=== PATIENT | female | born 1940 | race Caucasian/White ===

== ENCOUNTER → 2018-11-01 | Day surgery (SDC) | payer MEDICARE ==
[2018-10-31 14:36] LABS: BASOPHILS % 0.4 % (0.0-1.0); EOSINOPHILS # (AUTO) 0.1 (0.0-0.4); EOSINOPHILS % 1.3 % (0.0-6.0); HEMATOCRIT 39.1 % (34.2-44.1); HEMOGLOBIN 13.4 g/dL (12.0-16.0); LYMPHOCYTES # (AUTO) 1.4 (1.0-3.2); MEAN CORPUSCULAR HEMOGLOBIN 30.7 pg (28-32); MEAN CORPUSCULAR HGB CONC 34.3 g/dL (31-35); MEAN CORPUSCULAR VOLUME 89.7 fL (81-99); MONOCYTES # (AUTO) 0.5 (0.2-0.8); MONOCYTES % 8.9 % (4.4-11.3); NEUTROPHILS # (AUTO) 3.4 (2.1-6.9); NEUTROPHILS % 62.8 % (38.7-80.0); PLATELET COUNT 183 x10e3/uL (140-360); RED BLOOD COUNT 4.36 x10e6/uL (3.6-5.1); RED CELL DISTRIBUTION WIDTH 12.2 % (11.7-14.4)
[2018-10-31 14:46] LABS: INR 2.34; PROTHROMBIN TIME 27.4 seconds (11.9-14.5)
[2018-10-31 14:47] LABS: PARTIAL THROMBOPLASTIN TIME 46.6 seconds (23.8-35.5)
[~2018-11-01] MED LIST: BUSPIRONE HCL5 MG PO; BUTALBITAL-ASA1 EACH; CLONIDINE HCL0.1 MG PO; DEXILANT60 MG; ELIQUIS; FENTANYL CITRATE/PF 100MCG/2 ML INJ ONE; GABAPENTIN100 MG; HYDROCHLOROTH12.5 M1; LASIX20 MG PO; LOMOTIL TABLET1 EACH; LOSARTAN POTASS25 MG; MIRALAX17 GM; NIFEDICAL; PHENERGAN25 MG/1 ML; POTASSIUM CL; PRAVASTATIN SOD10 MG; PROPOFOL IV EMULSION 10 MG/ML 50 ML VIAL ONE; TIZANIDINE HCL4 M1; TRAZODONE HCL100 MG; ULTRAM50 MG PO; VIRTUSSIN AC; VITAMIN D1000 UNI1 PO; fish oil PO; vitamin b-12 PO
--- OUTSIDE RECORDS SUMMARY | 2018-11-01 10:51 | XMS REPORT | Clinical Summary ---
Author Author [facility] Organization [facility] Address Unknown Phone Unavailable Care Team Providers Care Flasher Adjuster Name Role Phone Heriberto Norman MD PCP Allergies Comments Active Allergy Reactions Severity Noted Date BP SHOOTS UP Celecoxib Low 02/20/2017 Penicillins Rash Medium 02/20/2017 Medications End Date Status Medication Sig Dispensed Refills Start Date Active aspirin (ECOTRIN) 81 MG Take 81 mg by 0 enteric coated tablet mouth daily. Active loratadine (CLARITIN) 10 Take 10 mg by 0 mg tablet mouth daily. Active NIFEdipine XL (PROCARDIA Take 30 mg by 0 XL) 30 MG 24 hr tablet mouth daily. Active pravastatin (PRAVACHOL) Take 10 mg by 0 10 MG tablet mouth nightly. Active clonIDINE (CATAPRES-TTS) Place 1 patch 0 0.1 mg/24 hr on the skin once a week. Active furosemide (LASIX) 20 mg Take 20 mg by 0 tablet mouth 2 (two) times a day. Active traZODone (DESYREL) 100 Take 100 mg 0 MG tablet by mouth nightly. Active codeine-guaifenesin Take 5 mL by 0 (GUAIFENESIN AC) 10-100 mouth 3 mg/5 mL liquid (three) times a day as needed for cough. 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 Last Filed Vital Signs Not on file Plan of Treatment Health Maintenance Due Date Last Done Comments SHINGLES VACCINES (1 of 1988 2) PNEUMOCOCCAL 2003 POLYSACCHARIDE VACCINE AGE 65 AND OVER PNEUMOCOCCAL-13 2003 INFLUENZA VACCINE 06/13/2018 Results Not on fileafter 10/31/2017 Insurance Payer Benefit Subscriber ID Type Phone Address Plan / Group AARP AARP xxxxxxxxx Commercial SUPPLEMENT MEDICARE MEDICARE xxxxxxxxxx Medicare [place], [place] PART A AND B Advance Directives Patient has advance care planning documents on file. For more information, inderjit plata contact: Jim Gambino [id number] [place] [address]
[2018-11-01 13:40] VITALS: BP 124/74
== END | disposition home or self-care (01) ==
LOC: OR 10:50
PROVIDERS: ATTEND Internal Medicine
DX: K92.2 Gastrointestinal hemorrhage, unspecified (principal); K29.70 Gastritis, unspecified, without bleeding; K21.9 Gastro-esophageal reflux disease without esophagitis; K64.0 First degree hemorrhoids; I48.91 Unspecified atrial fibrillation; I10 Essential (primary) hypertension; I25.10 Atherosclerotic heart disease of native coronary artery without angina pectoris; M19.90 Unspecified osteoarthritis, unspecified site; I83.90 Asymptomatic varicose veins of unspecified lower extremity; M81.0 Age-related osteoporosis without current pathological fracture; Z88.0 Allergy status to penicillin; Z01.812 Encounter for preprocedural laboratory examination; Z79.02 Long term (current) use of antithrombotics/antiplatelets; Z79.82 Long term (current) use of aspirin; Z95.0 Presence of cardiac pacemaker; Z96.652 Presence of left artificial knee joint; Z80.0 Family history of malignant neoplasm of digestive organs
CPT/HCPCS: 36415; 43239; 45378; 85025; 85610; 85730